=== PATIENT | female | born 1960 ===

== ENCOUNTER 2016-08-01 10:31 | Emergency (ER) | payer SELFPAY ==
[2016-08-01 10:40] VITALS: BP 129/81; TEMP 97.9; O2SAT 98
--- NOTE | 2016-08-01 10:55 | C.PDOC ---
History Of Present Illness 56 y/o female pmhx depression, presents to the ED with complaints of rash to face, arms and neck x2 days. Pt denies use of new lotions or creams, unsure of the cause. Rash is itchy. Denies fever, cough, SOB, chest pain or any other complaints. Time Seen by Provider: 08/01/16 10:52 Chief Complaint (Nursing): Abnormal Skin Integrity History Per: Patient History/Exam Limitations: no limitations Onset/Duration Of Symptoms: Days Current Symptoms Are (Timing): Still Present Quality Of Symptoms: Itching Severity: Mild Recent travel outside of the [place]: No Past Medical History Reviewed: Historical Data, Nursing Documentation, Vital Signs Vital Signs: Last Vital Signs Temp 97.9 F 08/01/16 10:39 Pulse 71 08/01/16 11:07 Resp 18 08/01/16 11:07 BP 129/81 08/01/16 10:39 Pulse Ox 98 08/01/16 11:09 - Medical History PMH: Anxiety, Depression, HTN, Hypercholesterolemia Family History: States: Unknown Family Hx - Social History Hx Tobacco Use: No Hx Alcohol Use: No Hx Substance Use: No - Immunization History Hx Tetanus Toxoid Vaccination: No Hx Influenza Vaccination: No Hx Pneumococcal Vaccination: No Review Of Systems Except As Marked, All Systems Reviewed And Found Negative. Constitutional: Negative for: Fever, Chills Cardiovascular: Negative for: Chest Pain Respiratory: Negative for: Cough, Shortness of Breath Skin: Positive for: Rash (itchy rash to arms, face, neck) Physical Exam - Physical Exam Appears: Non-toxic, No Acute Distress Skin: Warm, Dry, Rash (urticarial rash: 3-4 cm area to left arm, 4-5 cm area posterior neck, area to right arm; no bug bites, no evidence of cellulitis) Head: Atraumatic, Normacephalic Throat: Normal, No Erythema Neck: Normal, Normal ROM, Supple Chest: Symmetrical Cardiovascular: Rhythm Regular Respiratory: Normal Breath Sounds, No Rales, No Rhonchi, No Wheezing Extremity: Bilateral: Atraumatic Neurological/Psych: Oriented x3, Normal Speech ED Course And Treatment O2 Sat by Pulse Oximetry: 98 (room air) Pulse Ox Interpretation: Normal Medical Decision Making Medical Decision Making: Dx urticarial rash Treat with Benadryl Patient was advised to follow up with her PMD or clinic and to return to the ED if she develops shortness of breathe or tongue/throat swelling. Disposition Counseled Patient/Family Regarding: Diagnosis, Need For Followup, Rx Given - Disposition Referrals: [facility] [Outside] Disposition: HOME/ ROUTINE Disposition Time: 11:00 Condition: GOOD Additional Instructions: Mr Cote, thank you for letting us take care of you today. Your provider was Dr. Weller. You were treated for Rash. The emergency medical care you received today was directed at your acute symptoms. If you were prescribed any medication , please fill it and take as directed. It may take several days for your symptoms to resolve. Return to the Emergency Department if your symptoms worsen , do not improve, or if you have any other problems. Please contact your doctor or call one of the physicians/clinics you have been referred to that are listed on the Patient Visit Information form that is included in your discharge packet. Bring any paperwork you were given at discharge with you along with any medications you are taking to your follow up visit. Our treatment cannot replace ongoing medical care by a primary care provider (PCP) outside of the emergency department. Thank you for allowing the [employer] team to be part of your care today. If you had an X-Ray or CT scan: A Radiologist will review the ED reading if any change in treatment is needed we will contact you. If you had a blood, urine, or wound culture: It will take several days for the results, if any change in treatment is needed we will contact you. If you had an STI test: It will take 48 hours for the results. Please call after 1 week if you have not heard back. Prescriptions: DiphenhydrAMINE [Benadryl] 25 mg PO Q6 PRN #30 cap PRN Reason: Itching / Pruritus Hydrocortisone 1% Cream [Cortizone 1% Cream] 1 unit TP TID PRN #1 tube PRN Reason: Itching / Pruritus Instructions: Urticaria (ED) Forms: Gen Discharge Inst Indonesian Print Language: SAUDI ARABIAN - POA Present On Arrival: None - Clinical Impression Clinical Impression: Allergic contact dermatitis - Scribe Statement The provider has reviewed the documentation as recorded by the Ngoc babcock Provider Attestation: All medical record entries made by the Ngoc were at my direction and personally dictated by me. I have reviewed the chart and agree that the record accurately reflects my personal performance of the history, physical exam, medical decision making, and the department course for this patient. I have also personally directed, reviewed, and agree with the discharge instructions and disposition.
[2016-08-01 11:07] VITALS: PULSE 71; RESP 18
== END 2016-08-01 11:08 | disposition home or self-care (01) ==
LOC: C.ER 10:31
DX: L23.9 Allergic contact dermatitis, unspecified cause (principal)

== ENCOUNTER 2016-08-07 06:51 | Emergency (ER) | payer SELFPAY ==
[2016-08-07 07:06] VITALS: BP 129/84; PULSE 60; RESP 16; TEMP 98.2; O2SAT 100
--- NOTE | 2016-08-07 07:31 | C.PDOC ---
History Of Present Illness 56 y/o female presents to ED with complaint of itchy rash to her upper body for 1 week. Patient notes she was evaluated in ER last week for similar, and states she has been applying rx cream and Benadryl with no relief. Patient states she cannot sleep at night due to itching. Denies fever, SOB, difficulty swallowing. Time Seen by Provider: 08/07/16 07:03 Chief Complaint (Nursing): Abnormal Skin Integrity History Per: Patient History/Exam Limitations: no limitations Onset/Duration Of Symptoms: Days Current Symptoms Are (Timing): Worse Location Of Injury: Right: Abdomen, Arm, Chest, Leg, Left: Arm, Chest, Leg Quality Of Symptoms: Itching. denies: Swollen, Draining Recent travel outside of the [place]: No Past Medical History Reviewed: Historical Data, Nursing Documentation, Vital Signs Vital Signs: Last Vital Signs Temp 98.2 F 08/07/16 06:58 Pulse 60 08/07/16 06:58 Resp 16 08/07/16 06:58 BP 129/84 08/07/16 06:58 Pulse Ox 100 08/07/16 08:30 - Medical History PMH: Anxiety, Depression, HTN, Hypercholesterolemia Family History: States: Unknown Family Hx - Social History Hx Tobacco Use: No Hx Alcohol Use: No Hx Substance Use: No - Immunization History Hx Tetanus Toxoid Vaccination: No Hx Influenza Vaccination: No Hx Pneumococcal Vaccination: No Review Of Systems Except As Marked, All Systems Reviewed And Found Negative. Constitutional: Negative for: Fever, Chills Cardiovascular: Negative for: Chest Pain Respiratory: Negative for: Cough, Shortness of Breath, Wheezing Skin: Positive for: Rash Neurological: Negative for: Headache, Dizziness Physical Exam - Physical Exam Appears: Non-toxic, No Acute Distress Skin: Warm, Dry, Rash (Erythematous papules to interdigits of hands, papular rash scattered to left neck, upper extremities, right abdominal wall, anterior chest. +Scattered excoriations. ) Head: Atraumatic, Normacephalic Eye(s): bilateral: Normal Inspection Oral Mucosa: Moist Throat: Normal, No Erythema, No Exudate, No Drooling Neck: Normal ROM, Supple Chest: Symmetrical Cardiovascular: Rhythm Regular Respiratory: Normal Breath Sounds, No Rales, No Rhonchi, No Stridor, No Wheezing Extremity: Normal ROM Neurological/Psych: Oriented x3, Normal Speech Gait: Steady ED Course And Treatment O2 Sat by Pulse Oximetry: 100 (RA) Pulse Ox Interpretation: Normal Medical Decision Making Medical Decision Making: Patient recently seen 08/01/16 for rash and treated with Benadryl and prescribed cortisone cream. Explained to patient how to use permetherin cream and given prescription for Atarax. Advised to change linens. Disposition Counseled Patient/Family Regarding: Diagnosis, Need For Followup, Rx Given - Disposition Referrals: [facility] [Outside] Disposition: HOME/ ROUTINE Disposition Time: 07:28 Condition: STABLE Additional Instructions: 1. Aplique jose l brandon capa de crema en toda gong piel desde el wily hasta los dedos de los pies, incluyendo entre los dedos de las marine y los pies. Utilice todo el tubo de crema si necesita 2. Dejar la crema en gong piel por 8-14 horas. 3. Despus de 8-14 horas jean pasado, rubens la crema bandose o duchndose. 4. Es posible que tenga que repetir el proceso jose l semana despus Para picazn puede shaylee Benadryl o Atarax 25-50mg (1 o 2 pldoras) cada 6 horas segn sea necesario Por favor, siga en la clnica Prescriptions: hydrOXYzine HCl [Atarax] 25 mg PO Q6H #30 tab Permethrin 5% [Permethrin 5% Cream] 60 gm TP ONCE #1 tube Instructions: Scabies (ED) Print Language: CAMEROONIAN - POA Present On Arrival: None - Clinical Impression Clinical Impression: Scabies - PA / PROFESSOR OF BIOLOGY / Resident Statement MD/DO has reviewed & agrees with the documentation as recorded. - Scribe Statement The provider has reviewed the documentation as recorded by the Scribgabi Oliveira All medical record entries made by the Scribe were at my direction and personally dictated by me. I have reviewed the chart and agree that the record accurately reflects my personal performance of the history, physical exam, medical decision making, and the department course for this patient. I have also personally directed, reviewed, and agree with the discharge instructions and disposition.
== END 2016-08-07 07:40 | disposition home or self-care (01) ==
LOC: C.ER 06:51
DX: B86 Scabies (principal)

== ENCOUNTER 2016-10-27 10:52 | Emergency (ER) | payer OTHER ==
[2016-10-27 11:13] VITALS: TEMP 99.4
--- NOTE | 2016-10-27 11:41 | C.PDOC ---
History Of Present Illness 56 year old female presents to the ED with complaints of swelling and itching to right side of the face for two days. Patient notes intermittent episodes of bodily rash for approximately three months. She has been to the ED and clinic multiple times for similar complaints. Intermittent relief with use of medications including Benadryl. Patient denies fever, lip or throat swelling, cough, or shortness of breath. Time Seen by Provider: 10/27/16 11:24 Chief Complaint (Nursing): Allergic Reaction History Per: Patient History/Exam Limitations: no limitations Onset/Duration Of Symptoms: Intermittent Episodes, Worse Since (two days ago ) Current Symptoms Are (Timing): Still Present Associated Symptoms: Skin Rash, Swelling, Itching, Redness. denies: Trouble Swallowing, Dizziness, Chest Pain Home/EMS Treatment: Benadryl Recent travel outside of the [place]: No Additional History Per: Prior Records Past Medical History Reviewed: Historical Data, Nursing Documentation, Vital Signs Vital Signs: Last Vital Signs Temp 99.4 F 10/27/16 11:13 Pulse 75 10/27/16 12:16 Resp 18 10/27/16 12:16 BP 120/72 10/27/16 12:16 Pulse Ox 98 10/27/16 12:16 - Medical History PMH: Anxiety, Depression, HTN, Hypercholesterolemia Family History: States: Unknown Family Hx - Social History Hx Tobacco Use: No Hx Alcohol Use: No Hx Substance Use: No - Immunization History Hx Tetanus Toxoid Vaccination: No Hx Influenza Vaccination: No Hx Pneumococcal Vaccination: No Review Of Systems Constitutional: Negative for: Fever, Chills Cardiovascular: Negative for: Chest Pain, Palpitations Respiratory: Negative for: Cough, Shortness of Breath Gastrointestinal: Negative for: Nausea, Vomiting Skin: Positive for: Rash Physical Exam - Physical Exam Appears: Non-toxic, No Acute Distress Skin: Warm, Dry, Rash (diffuse hives to body iwht local blanching erythema. ) Head: Atraumatic, No Abrasion, No Laceration, Other (surrounding erythema to right side of face, periobrital area, consistant with hives. No lesions or vesicles. Scattered hives to bottom of face. ) Eye(s): bilateral: Other (Visual acuity 20/25 bilaterally ) Ear(s): Bilateral: Normal Oral Mucosa: Moist Throat: Normal, No Erythema, No Exudate Neck: Supple Chest: Symmetrical, No Deformity Cardiovascular: Rhythm Regular, No Murmur Respiratory: Normal Breath Sounds, No Rales, No Rhonchi, No Wheezing Neurological/Psych: Oriented x3 ED Course And Treatment O2 Sat by Pulse Oximetry: 99 (room air ) Progress Note: Patient was given Benadryl, Pepcid, and predniSONE. Patient instructed to follow up with Special Service Representative in the clinic. Disposition Counseled Patient/Family Regarding: Diagnosis, Need For Followup, Rx Given - Disposition Referrals: [facility] [Outside] [facility] [Outside] Disposition: HOME/ ROUTINE Disposition Time: 11:40 Condition: IMPROVED Prescriptions: Hydrocortisone 0.5% [Cortizone 0.5%] 1 ea EXT BID #1 tube predniSONE [Prednisone] 60 mg PO DAILY #12 tab Instructions: Urticaria (ED) Forms: [employer] (Belarusian) Print Language: PORTUGUESE - Clinical Impression Clinical Impression: Hives - Scribe Statement The provider has reviewed the documentation as recorded by the Scribe Nolvia Solorzano All medical record entries made by the Talatibgabi were at my direction and personally dictated by me. I have reviewed the chart and agree that the record accurately reflects my personal performance of the history, physical exam, medical decision making, and the department course for this patient. I have also personally directed, reviewed, and agree with the discharge instructions and disposition.
[2016-10-27 12:17] VITALS: BP 120/72; PULSE 75; RESP 18
[2016-10-27 13:37] VITALS: O2SAT 99
== END 2016-10-27 12:20 | disposition home or self-care (01) ==
LOC: C.ER 10:52 → SUPCPDRO 10:52 → C.ER 12:20
DX: L50.9 Urticaria, unspecified (principal)

== ENCOUNTER 2017-12-14 15:17 | Emergency (ER) | payer SELFPAY ==
[2017-12-14 15:18] VITALS: BMI 25.8
[2017-12-14 15:32] VITALS: BP 148/90; PULSE 67; RESP 16; TEMP 98.7; O2SAT 98
--- NOTE | 2017-12-14 16:19 | C.PDOC ---
History Of Present Illness 57 y/o female presents to the ED complaining of pain to the right toes since injury 3 days ago. Patient states she was walking and accidentally kicked a hard piece of furniture, injuring the 4th and 5th right toes. Reports she is able to walk, but pain is worse. No changes in sensation. No open wounds. Time Seen by Provider: 12/14/17 15:43 Chief Complaint (Nursing): Lower Extremity Problem/Injury History Per: Patient History/Exam Limitations: no limitations Onset/Duration Of Symptoms: Days (x3) Current Symptoms Are (Timing): Still Present Past Medical History Reviewed: Historical Data, Nursing Documentation, Vital Signs Vital Signs: Last Vital Signs Temp 98.7 F 12/14/17 15:29 Pulse 67 12/14/17 15:29 Resp 16 12/14/17 15:29 BP 148/90 12/14/17 15:29 Pulse Ox 98 12/14/17 15:29 - Medical History PMH: Anxiety, Depression, HTN, Hypercholesterolemia Denies: Chronic Kidney Disease Surgical History: Family History: States: Unknown Family Hx - Social History Hx Tobacco Use: No Hx Alcohol Use: No Hx Substance Use: No - Immunization History Hx Tetanus Toxoid Vaccination: No Hx Influenza Vaccination: No Hx Pneumococcal Vaccination: No Review Of Systems Except As Marked, All Systems Reviewed And Found Negative. Musculoskeletal: Positive for: Foot Pain (right 4th and 5th toe pain) Skin: Negative for: Lesions Neurological: Negative for: Weakness, Numbness, Incoordination Physical Exam - Physical Exam Appears: Non-toxic, No Acute Distress Skin: Normal Color, Warm, Dry Head: Atraumatic, Normacephalic Eye(s): bilateral: Normal Inspection Neck: Normal ROM Chest: Symmetrical Respiratory: No Accessory Muscle Use Extremity: Normal ROM, Tenderness (to the right 4th and 5th toes), Capillary Refill (less than 2 sec), No Deformity, Swelling (4th and 5th toes appear mildly swollen) Pulses: Left Dorsalis Pedis: Normal, Right Dorsalis Pedis: Normal Neurological/Psych: Oriented x3, Normal Motor, Normal Sensation, Other (No focal deficits) Gait: Steady ED Course And Treatment O2 Sat by Pulse Oximetry: 98 (RA) Pulse Ox Interpretation: Normal - Other Rad XR Right Foot X-Ray: Viewed By Me, Read By Radiologist Interpretation: Accession No. : [id number]. Patient Name / ID : KEITH Diallo / [id number]. Exam Date : 12/14/2017 16:23:28 ( Approved ). Study Comment : Sex / Age : F / 57Y. Creator : Justine Iqbal MD. Dictator : Justine Iqbal MD. Diesel Automotive Technician : Starting Sheet Tank Operator : Pina Iqbal MD. Approver2 : Report Date : 12/14/2017 17:38:21. My Comment : . PROCEDURE: Right foot Radiographs. HISTORY: PAIN/SWELLING. COMPARISON: Right foot radiographs performed 06/16/13. FINDINGS: BONES: No acute displaced fracture. JOINTS: No dislocation. SOFT TISSUES: Soft tissue swelling. No evidence of radiopaque foreign body. OTHER FINDINGS: None. IMPRESSION: Soft tissue swelling. No acute displaced fracture, dislocation, or significant joint effusion identified. If symptoms persist, or if there is continued clinical concern, x-ray follow-up in 7-10 days should be considered. Medical Decision Making Medical Decision Making: Initial Plan: --Motrin 600 mg PO --X-ray left foot X-ray reviewed, and is negative. Toes onesimo taped and ortho shoe placed on the foot by senior manufacturing technician, and checked by me. Patient counseled regarding diagnosis and follow up instructions. Disposition - Disposition Referrals: [facility] [Outside] [facility] [Outside] Disposition: HOME/ ROUTINE Disposition Time: 16:00 Condition: STABLE Additional Instructions: Follow up with the medical doctor/Orthopedist within 1-2 days. Return if worsened. Prescriptions: Acetaminophen [Tylenol] 325 mg PO Q6 PRN #30 tab PRN Reason: Pain, Mild (1-3) Naproxen [Naprosyn] 500 mg PO BID #20 tab Instructions: Toe Fracture (DC) Forms: [facility] (Yoruba), Work Excuse Print Language: MONGOLIAN - Clinical Impression Clinical Impression: Toe fracture - PA / EMERGENCY ROOM NURSE / Resident Statement MD/DO has reviewed & agrees with the documentation as recorded. - Scribe Statement The provider has reviewed the documentation as recorded by the Scribe (Gabriela Lozano) All medical record entries made by the Scribe were at my direction and personally dictated by me. I have reviewed the chart and agree that the record accurately reflects my personal performance of the history, physical exam, medical decision making, and the department course for this patient. I have also personally directed, reviewed, and agree with the discharge instructions and disposition.
--- NOTE | 2017-12-14 17:42 | RAD ---
PROCEDURE: Right foot Radiographs. HISTORY: PAIN/SWELLING COMPARISON: Right foot radiographs performed 06/16/13 FINDINGS: BONES: No acute displaced fracture. JOINTS: No dislocation. SOFT TISSUES: Soft tissue swelling. No evidence of radiopaque foreign body. OTHER FINDINGS: None. IMPRESSION: Soft tissue swelling. No acute displaced fracture, dislocation, or significant joint effusion identified. If symptoms persist, or if there is continued clinical concern, x-ray follow-up in 7-10 days should be considered.
== END 2017-12-14 17:45 | disposition home or self-care (01) ==
LOC: C.ER 15:17
DX: S92.911A Unspecified fracture of right toe(s), initial encounter for closed fracture (principal); W22.03XA Walked into furniture, initial encounter; Y92.9 Unspecified place or not applicable